=== PATIENT | female | born 1935 | race Caucasian/White ===

== ENCOUNTER 2021-04-14 22:02 | Emergency (ER) | payer MEDICARE, BC ==
[~2021-04-14] VITALS: Ht 157.5 cm; Wt 50.1 kg
[~2021-04-14 22:02] MED LIST: ACET325T53 PO; AMPI500C11 PO; ASPI-618 PO; Acetaminophen PO; DIVA125T2 PO; Docusate Sodium PO; Donepezil Hcl PO; HYDR-3326 PO; Lisinopril PO; MAGN400O6 PO; MEGE400O4 PO; MEMA10TA PO; PANT40TA2 PO; POTA20TA83 PO; Polyethylene Glycol 3350 PO; QUET25TA PO; RISP0.5T5 PO; Sertraline Hcl PO; Thyroid PO
[2021-04-14] MEDS ORDERED: CEFTRIAXONE 1 G in IV DEXTROSE 5% 50 ML IV ONE (22:15)
[2021-04-14] MEDS ORDERED: IV NORMAL SALINE 1000 ML BAG IV ONE (22:15)
--- NOTE | 2021-04-14 22:17 | NUR ---
PATIENT'S PMD CALLED DR AVENDANO AND INFORMED HIM THAT PATIENT WILL BE WILL BE GOING TO HOSPICE AT [facility] AND DOES NOT WANT ANY TEST OR PROCEDURE DONE.
--- NOTE | 2021-04-14 22:21 | NUR ---
NO TEST OR PROCEDURES ARE DONE REUESTED BY PATIENT'S PMD.
--- NOTE | 2021-04-14 22:37 | NUR ---
CALLED [facility] ETA IS [id number].
--- NOTE | 2021-04-15 00:45 | NUR ---
GAVE SBAR REPORT TO [facility] WHO WILL TAKE PATIENT BACK TO [facility].
[2021-04-15 00:46] VITALS: BP 141/103
--- NOTE | 2021-04-15 01:15 | NUR ---
Patient discharged to [facility] in stable condition. Written and verbal after care instructions given. Patient verbalizes understanding of instructions. Stressed follow up or return to ER for worsening s/s.
== END 2021-04-15 01:16 ==
LOC: ER 22:02
DX: A41.9 Sepsis, unspecified organism (principal); R09.02 Hypoxemia; R00.0 Tachycardia, unspecified; Z66 Do not resuscitate; Z86.73 Personal history of transient ischemic attack (TIA), and cerebral infarction without residual deficits; F03.90 Unspecified dementia, unspecified severity, without behavioral disturbance, psychotic disturbance, mood disturbance, and anxiety; I10 Essential (primary) hypertension; E78.5 Hyperlipidemia, unspecified; E03.9 Hypothyroidism, unspecified; Z85.118 Personal history of other malignant neoplasm of bronchus and lung; Z90.13 Acquired absence of bilateral breasts and nipples; Z79.890 Hormone replacement therapy; L89.159 Pressure ulcer of sacral region, unspecified stage
CPT/HCPCS: A4663